=== PATIENT | male | born 2000 | race Caucasian/White ===

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

== ENCOUNTER 2022-04-07 11:59 | Emergency (ER) | payer BC, SELFPAY ==
[2022-04-07 12:25] VITALS: BP 130/81; PULSE 82; RESP 18; TEMP 36.8; O2SAT 97; BMI 32.3
--- NOTE | 2022-04-07 13:01 | HMH.EDUTC ---
[facility] Disposition Clinical Impression: Exposure to COVID-19 virus, Viral syndrome Disposition: Home, Self-Care Condition on Discharge: Good Instructions: DI for COVID-19 (Suspected or Confirmed ), Preventing the Spread of Coronavirus Discharge Instructions, DI for Headache Additional Instructions: *Monitor Temp, Over the counter Motrin or Tylenol as directed/as needed Tylenol every 4 hours and Motrin every 6 hours (as long as your family doctor has told you that you can take it) for fever or pain. and straight to ER if unable to lower temp less than 101.0 after medication given *Warm salt water gargles may help to soothe the throat *Throat Lozenges *Warm fluids like tea with honey may help to soothe the throat *Sleep elevated *Humidifier/Vaporizer Follow up IMMEDIATELY for new or worsening symptoms or no Noticeable improvement over the next 48-72 hours. 911 for difficulty breathing or swallowing You were tested for today for COVID19 your test result should be back in the next 24-48 hours, you may check your results on the [facility] My Health Portal Make sure to take your Vitamins Vit. C Vit D and Zinc if you can take them Referrals: Provider,Referral, [Primary Care Provider] - As needed Forms: Work/School Release Medical Decision Making - Bud Inquiry Pt receiving controlled substance: No Bud was queried for this patient: No Vital Signs: 04/07/22 12:25 Temperature 98.3 F Temperature Source Oral Pulse Rate [Right Brachial] 82 Respiratory Rate 18 Blood Pressure [Right Arm] 130/81 Blood Pressure Mean [Right Arm] 97 Blood Pressure Source [Right Arm] Automatic Cuff Blood Pressure Position [Right Arm] Sitting 02 Sat by Pulse Oximetry 97 Oxygen Delivery Method Room Air Orders (Tests/Meds): ORDERS Category Date Time Status Covid-19 Nasal PCR ([facility]) Routine Lab 04/07/22 12:28 Received [facility] HPI - General Stated complaint: SOA,headache, exposure Time Seen by Provider: 04/07/22 13:01 Mode of Arrival: Ambulatory Source of Information: Patient Limitations: No Limitations Description of Symptoms (Recalled from Triage Doc. by RN): COVID TEST D/T EXPOSURE. C/O HEADACHE AND SOA HEENT Symptoms (Recalled from RN notes): Yes Resp Symptoms (Recalled from RN notes): Yes Skin Symptoms (Recalled from RN notes): No MS Symptoms (Recalled from RN notes): No Functional Status (Recalled from RN notes): WNL - History of Present Illness Provider Complaint: Patient states that someone he lives with recently tested positive for COVID states that he has had a little headache and felt SOA at times but nothing right now and needed to get tested for work - Related Data Previous Rx's Medication Instructions Recorded Cefdinir [Omnicef 300mg Capsule] 300 mg PO BID #20 cap 10/30/20 Fluticasone Propionate [Flonase 1 spr NS DAILY #1 bottle 10/30/20 50mcg nasal spray 16gm] Meclizine HCl 12.5 mg PO BID PRN #14 tab 10/30/20 Ondansetron [Zofran 4mg ODT] 4 mg PO TIDP PRN #9 tab 10/30/20 Sulfamethoxazole/Trimethoprim 1 each PO BID #14 tab 06/14/21 [Bactrim DS tablet] clindamycin HCL [Clindamycin HCl] 300 mg PO TID #21 cap 06/14/21 Allergies Allergy/AdvReac Type Severity Reaction Status Date / Time amphetamine [From ADDERALL] Allergy Unknown HALLUCINATI Verified 01/21/18 12:58 ONS dextroamphetamine Allergy Unknown HALLUCINATI Verified 01/21/18 12:58 [From ADDERALL] ONS guanfacine [From TENEX] Allergy Unknown I-HIVES Verified 01/21/18 12:58 - Worker's Comp Is this a Worker's Comp case?: No [facility] History - Hepatitis A Screen Attestation statement:: This patient has been screened for Hepatitis A risk factors. I have reviewed the patient's past medical history: Yes Medical History: Reports:: Anxiety, Gastroesophageal Reflux Disease(GERD) Denies:: Diabetes Mellitus Type 1, Diabetes Mellitus Type 2, Hypertension Laterality Cases: Bilateral: Tonsillectomy - Social History Smoking Status:
[2022-04-07 13:03] VITALS: BP 130/81; PULSE 82; RESP 18; TEMP 36.8; O2SAT 97
== END 2022-04-07 13:09 | disposition home or self-care (01) ==
PROVIDERS: Emergency Provider Nurse Practitioner
DX: Z20.822 Contact with and (suspected) exposure to COVID-19 (principal)
CPT/HCPCS: 99212; C9803; G0463; U0003; U0005

== ENCOUNTER 2022-07-23 08:36 | Emergency (ER) | payer BC, SELFPAY ==
--- NOTE | 2022-07-23 09:54 | EXP.UTC ---
Discharge Plan Disposition Patient Disposition: Home, Self-Care Condition: Good Prescriptions Prescriptions: New methylprednisolone 4 mg Tablets,Dose Pack 4 mg PO DIRECTED Qty: 21 0RF triamcinolone acetonide 0.025 % cream 1 applic topical DAILY Qty: 15 0RF No Action meclizine 12.5 MG tablet 12.5 mg PO BID PRN (Reason: Dizziness) Qty: 14 0RF ondansetron 4 MG tablet,disintegrating 4 mg PO TIDP PRN (Reason: Nausea) Qty: 9 0RF cefdinir 300 MG capsule 300 mg PO BID Qty: 20 0RF fluticasone propionate 120 SPR/BOT bottle 1 spr NS DAILY Qty: 1 0RF Rx Instructions: each nostril daily sulfamethoxazole-trimethoprim 1 EACH tablet 1 each PO BID Qty: 14 0RF clindamycin HCl 300 MG capsule 300 mg PO TID Qty: 21 0RF Referrals Follow up/Referrals: Yessenia Mcmahon [Primary Care Provider] - See instructions Activity Restrictions/Add. Instructions Additional Instructions/Restrictions: avoid contact with the offending substance. Don't start the oral steroids until tomorrow. Don't put the topical steroids (triamcinolone) on your face or your groin. Follow up with your regular doctor. GO TO THE ER FOR ANY WORSENING SYMPTOMS OR CONCERNS Clinical Impressions Clinical Impression: Poison snehal dermatitis Stand Alone Forms Stand Alone Forms: Work/School Release Instructions Patient Instructions: DI for Contact Dermatitis, DI for Poison Snehal Allergy Discharge ED Provider: Galdino Desai [facility] General Stated complaint: Rash RT/LT wrist Time Seen by Provider: 07/23/22 09:54 History of Present Illness Provider Complaint: He states that for the past 4 days he has had a poison snehal rash on his bilateral arms and face. Related Data Previous Rx's Medication Instructions Recorded cefdinir 300 mg capsule 300 mg PO BID #20 caps 10/30/20 fluticasone propionate 50 1 spr NS DAILY ##1 10/30/20 mcg/actuation nasal spray,suspension meclizine 12.5 mg tablet 12.5 mg PO BID PRN Dizziness #14 10/30/20 tabs ondansetron 4 mg disintegrating 4 mg PO TIDP PRN Nausea #9 tabs 10/30/20 tablet clindamycin HCl 300 mg capsule 300 mg PO TID #21 caps 06/14/21 sulfamethoxazole 800 1 each PO BID #14 tabs 06/14/21 mg-trimethoprim 160 mg tablet methylprednisolone 4 mg tablets in 4 mg PO DIRECTED #21 tabs 07/23/22 a dose pack triamcinolone acetonide 0.025 % 1 applic topical DAILY #15 grams 07/23/22 topical cream Allergies Allergy/AdvReac Type Severity Reaction Status Date / Time amphetamine [From ADDERALL] Allergy Unknown HALLUCINATI Verified 07/23/22 10:07 ONS dextroamphetamine Allergy Unknown HALLUCINATI Verified 07/23/22 10:07 [From ADDERALL] ONS guanfacine [From TENEX] Allergy Unknown I-HIVES Verified 07/23/22 10:07 [facility] Social History Smoking Status: Never smoker alcohol intake: never substance use type: denies use current occupational status: other Travel in the last 8 weeks: None ROS Obtained: Yes All systems reviewed & no additional complaints except as documented Constitutional Constitutional: Denies chills and Denies fever(s) Eyes Eyes: Denies eye discharge ENT Ears, Nose, Mouth, and Throat: Denies dizziness, Denies otalgia and Denies sore throat Cardiovascular Cardiovascular: Denies chest pain Respiratory Respiratory: Denies shortness of breath, Denies chest congestion, Denies cough, Denies stridor and Denies wheezing Gastrointestinal Gastrointestingal: Denies nausea or vomiting Musculoskeletal Musculoskeletal: Reports system reviewed and no additional complaints, except as documented and Denies arthralgias Integumentary/Breasts Skin/Breast: Reports as per HPI and Reports rash Neurologic Neurologic: Denies dizziness and Denies paresthesias Allergic/Immunologic Allergic/Immunologic: Denies wheezing Physical Exam General General appearance: alert and in no apparent distre
[2022-07-23 10:05] VITALS: BP 117/75; PULSE 75; RESP 18; TEMP 36.8; O2SAT 100; BMI 34.2
[2022-07-23 10:32] VITALS: BP 117/75; PULSE 75; RESP 18; TEMP 36.8
== END 2022-07-23 10:33 | disposition home or self-care (01) ==
PROVIDERS: Emergency Provider Nurse Practitioner Family; PCP Family Medicine
DX: L23.7 Allergic contact dermatitis due to plants, except food (principal)
CPT/HCPCS: 96372; 99212; G0463